=== PATIENT | female | born 1945 | race Caucasian/White ===

== ENCOUNTER → 2016-11-23 | Day surgery (SDC) | payer MEDICARE, MEDICAID ==
[~2016-11-23] VITALS: Ht 152.4 cm; Wt 54.5 kg
[~2016-11-23] MED LIST: ACET1TAB12 PO; ASPI-973 PO; BACL10TA PO; BENA40TA2 PO; BUSP5TAB3 PO; CARV25TA2 PO; CHOL200047 PO; CRAN1TAB5 PO; CYAN1TAB42 PO; Cosyntropin 0.25 mg/mL Inj IV ONE; FOLI20CA PO; HYDR-4003 PO; LOVA20TA PO; METF1000 PO; MULT-666 PO; SENN-133 PO; VERA360C2 PO
[2016-11-23 08:47] VITALS: BP 120/75; PULSE 69; RESP 16; O2SAT 97
--- NOTE | 2016-11-23 09:41 | NUR ---
Cortisol stim test Pt given medication in right deltoid, lab draws as ordered. Pt denies any ADR. left unit using FWW with her caregiver.
== END | disposition home or self-care (01) ==
LOC: MOCO 08:01
PROVIDERS: ATTEND Family Medicine
DX: E87.1 Hypo-osmolality and hyponatremia (principal)
CPT/HCPCS: 36415; 82533; 96372; J0834